=== PATIENT | female | born 1975 | race Caucasian/White ===

== ENCOUNTER 2025-06-27 15:00 | Day surgery (SDC) | payer BC ==
[2025-06-27] MEDS ORDERED: Sodium Chloride 0.9(Preservative Free) 10 ML IJ ONE (15:01)
[2025-06-27] MEDS ORDERED: Reglan 10 MG/2 ML ONE (15:29)
[2025-06-27] MEDS ORDERED: Pepcid 20 MG VIAL IV ONE (15:29)
[2025-06-27] MEDS ORDERED: propofoL IV ONE (16:08)
[2025-06-27] MEDS ORDERED: Lactated Ringers 1,000 ML IV ONE (16:10)
--- NOTE | 2025-06-27 17:33 | XRAY ---
Indication: Left L4-S1 transforaminal ELLIOTT. Intraoperative fluoroscopy provided for 21 seconds. 4 digital spot image submitted for interpretation demonstrates posterior needle tips projecting over expected left L4 and L5 nerve roots. Small amount of contrast injected for needle tip placement. Correlate with intraoperative findings/report.
--- NOTE | 2025-06-28 12:03 | XRAY ---
21 seconds of fluoroscopy was used in surgery for a left L4-S1 transforaminal ELLIOTT.
== END 2025-06-27 16:55 | disposition home or self-care (01) ==
LOC: SDC-PAIN 15:00
PROVIDERS: ATTEND Psychiatry & Neurology Pain Medicine
DX: M54.16 Radiculopathy, lumbar region (principal)